=== PATIENT | male | born 1985 | race Caucasian/White ===

== ENCOUNTER 2018-06-28 05:45 | Day surgery (SDC) | payer OTHER ==
[~2018-06-28] VITALS: Ht 172.7 cm; Wt 81.7 kg
[~2018-06-28 05:45] MED LIST: ADVIL200 M1 PO; CYCLOBENZAPRINE5 MG PO; HYDROCODON-ACE1 EA10 PO; IBUPROFEN600 MG PO; NORCO 5-325 TA1 EACH PO; OXYCODONE HCL5 MG PO
[2018-06-28] MEDS ORDERED: HYDROCODON-ACE1 EA11 PO (08:29)
[2018-06-28] MEDS ORDERED: DICLOFENAC SODI75 MG PO (08:29)
[2018-06-28] MEDS ORDERED: SENNA LAX8.6 MG PO (08:29)
--- NOTE | 2018-06-28 08:39 | NUR ---
06/28/18 0839 Yelitza Driscoll 0822-PATIENT ARRIVED TO PACU NONAROUSABLE ORAL AIRWAY IN PLACE. 6L MASK RR EVEN. SB. LEFT KNEE DRESSING CDI ICE APPLIED. PALPABLE LEFT PEDAL PULSE. GOOD WARMTH AND CAP REFILL.
--- NOTE | 2018-06-28 09:24 | NUR ---
ICED WATER GIVEN. FRUIT AND VEGETABLE ORDERED FROM DIETARY. CALL LIGHT W/IN REACH.
--- NOTE | 2018-06-28 10:02 | NUR ---
PT IS ASLEEP, PAPI CURRY REQUESTED I NOT DISTURB PT. WILL FOLLOW NEEDED
--- NOTE | 2018-06-28 10:52 | NUR ---
LE 1020: PATIENT UP TO BATHROOM W/RN STANDBY. PATIENT AMBULATES WELL AND REPORTS SUCCESSFUL VOID. DC INSTRUCTIONS GIVEN. PATIENT VERBALIZES UNDERSTANDING. PATIENT DRESSES SELF AND TRANSFERS SELF TO AND TOLERATES THAT WELL.
--- NOTE | 2018-06-30 12:28 | OR ---
[facility] [address] [place], [place] [address] Signed DATE OF OPERATION: 06/28/2018 SURGEON: Rylie Soler MD PREOPERATIVE DIAGNOSIS: Medial meniscus tear, left knee. POSTOPERATIVE DIAGNOSIS: Medial meniscus tear, left knee. PROCEDURE PERFORMED: Left knee arthroscopy with partial medial meniscectomy. ROTOR COIL TAPER: Liz Mota PA-C. Liz was present and critical for positioning, camera holding, and wound closure. ANESTHESIA: General. BLOOD LOSS: Minimal. TOURNIQUET TIME: Zero. BRIEF HISTORY: Karthik is a 33-year-old gentleman with twisting injury to his knee. He has a painful locking and giving out. MRI was consistent with a large posterior medial meniscus tear. Risks, benefits, and alternatives were discussed. He elected to proceed. DESCRIPTION OF PROCEDURE: Once consent was obtained, he was taken to the operating room. After adequate anesthesia, he was placed on operating table. All downside pressure points were well padded. The left knee was placed in well-padded proximal thigh tourniquet placed in leg jara. Right knee was flexed, abducted, and externally rotated on a well-padded leg jara. The portal sites were preinjected using 0.25% Marcaine with epinephrine under alcohol prep. The leg was then prepped and draped in a standard sterile fashion. Standard inferior lateral and superior lateral portals were made. The scope was introduced in the knee. Electronically Signed By: RYLIE SOLER MD 06/30/18 1228 PATIENT NAME: KARTHIK WOODARD OPERATIVE REPORT DATE OF : 81 REPORT #: [id number] PHYSICIAN: RYLIE SOLER MD PCP: FABIOLA CARRINGTON REPORT IS CONFIDENTIAL AND NOT TO BE RELEASED WITHOUT AUTHORIZATION [facility] [address], [place] [address] Signed ARTHROSCOPIC FINDINGS: Minimal chondromalacia was noted throughout the knee. ACL and PCL were intact. Medial and lateral gutters were intact with no loose bodies. The lateral meniscus was intact. Medial meniscus showed a large tear of the posterior medial corner with a large flap that was folded and tucked way back up underneath the meniscus. The standard inferomedial portal was made after localization using a spinal needle. The straight and curved biters were then used to trim the meniscus tear back to a stable rim. The large flap underneath the posterior horn was then brought back into the knee and removed. The ends of the meniscus were then feathered out. All debris was evacuated. The scope was then withdrawn. Portals were closed with 3-0 nylon and dressed with Adaptic ABD and Anant wrap. He tolerated the procedure well. All sponge, needle, and instrument counts were correct. Rylie Soler MD BA/RADHA /[id number] Copies: ~ Electronically Signed By: RYLIE SOLER MD 06/30/18 1228 PATIENT NAME: KARTHIK WOODARD OPERATIVE REPORT DATE OF : 81 REPORT #: [id number] PHYSICIAN: RYLIE SOLER MD PCP: FABIOLA CARRINGTON REPORT IS CONFIDENTIAL AND NOT TO BE RELEASED WITHOUT AUTHORIZATION
== END 2018-06-28 10:30 | disposition home or self-care (01) ==
LOC: DS 05:45
PROVIDERS: Specialist
PROC: 0SBD4ZZ Excision of Left Knee Joint, Percutaneous Endoscopic Approach (ICD-10-PCS; principal; 2018-06-28 06:45)
DX: S83.242A Other tear of medial meniscus, current injury, left knee, initial encounter (principal); F17.220 Nicotine dependence, chewing tobacco, uncomplicated; X58.XXXA Exposure to other specified factors, initial encounter
CPT/HCPCS: 01400; 64447; 76942; J0690; J1100; J1885; J2250; J2405; J2704; J2765; J3010; J7120

== ENCOUNTER 2020-06-30 20:20 | Emergency (ER) | payer OTHER ==
[~2020-06-30 20:20] MED LIST changes: +DICLOFENAC SODI75 MG PO; +HYDROCODON-ACE1 EA11 PO; +SENNA LAX8.6 MG PO
== END 2020-06-30 22:56 | disposition home or self-care (01) ==
LOC: ED 20:20
DX: S31.119A Laceration without foreign body of abdominal wall, unspecified quadrant without penetration into peritoneal cavity, initial encounter (principal); S01.111A Laceration without foreign body of right eyelid and periocular area, initial encounter; S41.111A Laceration without foreign body of right upper arm, initial encounter; F19.129 Other psychoactive substance abuse with intoxication, unspecified; W22.8XXA Striking against or struck by other objects, initial encounter; Z79.899 Other long term (current) drug therapy
CPT/HCPCS: 12002; 12011; 51702; 70450; 71260; 72125; 74177; 80053; 81001; 82150; 82550; 83605; 83690; 85025; 86850; 86900; 86901; 90471; 90715; 99285-25; J7030; Q9967

== ENCOUNTER 2020-07-05 12:34 | Emergency (ER) | payer OTHER ==
[~2020-07-05] VITALS: Ht 172.7 cm; Wt 81.6 kg
--- OUTSIDE RECORDS SUMMARY | 2020-07-05 12:36 | XMS ---
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 [facility] has no Care Guidelines for this patient. Jeana VISIT COUNT (12 MO.) 2 [facility] TOTAL 2 NOTE: Visits indicate total known visits. ED/C VISIT TRACKING (12 MO.) 07/05/2020 12:[address] [facility] [place] TYPE: Emergency COMPLAINT: - WOUND CHECK 06/30/2020 20:[address] [facility] [place] TYPE: Emergency COMPLAINT: - FALL DIAGNOSES: - Other long-term (current) drug therapy - Other psychoactive substance abuse with intoxication, unspecified - Laceration without foreign body of abdominal wall, unspecified quadrant without penetration into peritoneal cavity, initial encounter - Laceration without foreign body of right upper arm, initial encounter - Striking against or struck by other objects, initial encounter - Laceration without foreign body of right eyelid and periocular area, initial encounter INPATIENT VISIT TRACKING (12 MO.) No inpatient visits to display in this time frame [email or web address]
[2020-07-05] MEDS ORDERED: CEPHALEXIN500 M1 PO (14:16)
== END 2020-07-05 14:35 | disposition home or self-care (01) ==
LOC: ED 12:34
DX: T81.41XA Infection following a procedure, superficial incisional surgical site, initial encounter (principal)
CPT/HCPCS: 99282